=== PATIENT | male | born 1955 | race Caucasian/White ===

== ENCOUNTER 2018-02-17 17:28 | Emergency (ER) | payer MEDICAID ==
[2018-02-17 17:35] VITALS: BP 128/82; PULSE 78; RESP 18; TEMP 97.8; O2SAT 100
[2018-02-17] MEDS ORDERED: Naproxen 550 mg Tab PO STA (17:45)
[2018-02-17] MEDS ORDERED: Naproxen 550 mg Tab PO ONE (17:57)
--- NOTE | 2018-02-17 18:02 | C.PDOC ---
History Of Present Illness Patient presents to ED c/o approx 2-3 weeks of nontraumatic left knee pain. He denies falls/injuries, fever, rash, calf pain. He has been taking Naprosyn, Tylenol without relief. Patient has not seen PMD for symptoms, states he "prefers to come to hospital". Time Seen by Provider: 02/17/18 17:36 Chief Complaint (Nursing): Lower Extremity Problem/Injury History Per: Patient History/Exam Limitations: no limitations Onset/Duration Of Symptoms: Persistent (2-3 weeks ) Current Symptoms Are (Timing): Still Present Severity: Mild Past Medical History Reviewed: Historical Data, Nursing Documentation, Vital Signs Vital Signs: Last Vital Signs Temp 97.8 F 02/17/18 17:33 Pulse 78 02/17/18 17:33 Resp 18 02/17/18 17:33 BP 128/82 02/17/18 17:33 Pulse Ox 100 02/17/18 18:26 - Medical History PMH: No Chronic Diseases Surgical History: Appendectomy Family History: States: No Known Family Hx - Social History Hx Alcohol Use: No Hx Substance Use: No - Immunization History Hx Tetanus Toxoid Vaccination: No Hx Influenza Vaccination: No Hx Pneumococcal Vaccination: No Review Of Systems Except As Marked, All Systems Reviewed And Found Negative. Constitutional: Negative for: Fever, Chills Cardiovascular: Negative for: Chest Pain, Palpitations Respiratory: Negative for: Shortness of Breath Gastrointestinal: Negative for: Nausea, Vomiting, Abdominal Pain, Diarrhea Genitourinary: Negative for: Dysuria, Hematuria Musculoskeletal: Positive for: Other (RIGHT KNEE PAIN ) Skin: Negative for: Rash Neurological: Negative for: Weakness, Numbness Physical Exam - Physical Exam Appears: Well, Non-toxic, No Acute Distress Skin: Normal Color, Warm, Dry, No Rash Oral Mucosa: Moist Cardiovascular: Rhythm Regular Respiratory: Normal Breath Sounds, No Rales, No Rhonchi, No Wheezing Gastrointestinal/Abdominal: Normal Exam, Bowel Sounds, Soft, No Tenderness Extremity: Tenderness (right knee tenderness to palpation at lateral aspect, no swelling or erythema), No Calf Tenderness, Capillary Refill (< 2 sec all digits ), No Deformity, No Swelling Pulses: Left Dorsalis Pedis: Normal, Right Dorsalis Pedis: Normal Neurological/Psych: Oriented x3, Normal Motor, Normal Sensation Gait: Steady ED Course And Treatment O2 Sat by Pulse Oximetry: 100 (RA) Pulse Ox Interpretation: Normal Progress Note: Patient given PO Naprosyn. Xrays of right knee ordered and reviewed. Disposition Counseled Patient/Family Regarding: Diagnosis, Need For Followup, Rx Given - Disposition Referrals: Ej Lassiter III, MD [Staff Provider] - [facility] Disposition: HOME/ ROUTINE Disposition Time: 18:30 Condition: STABLE Additional Instructions: FOLLOW UP WITH ORTHOPEDICS WITHIN 1 WEEK USE MEDICATIONS NEEDED RETURN TO EMERGENCY ROOM IF SYMPTOMS WORSEN SEGUIMIENTO CON ORTOPEDIA DENTRO DE 1 SEMANA USE MEDICAMENTOS SEGN SEA NECESARIO REGRESE AL SHAKIR DE EMERGENCIA SI LOS SNTOMAS EMPEORAN Prescriptions: Naproxen [Naprosyn] 1 tab PO BID PRN #25 tab PRN Reason: Pain traMADol [Ultram] 50 mg PO BID PRN #12 tab PRN Reason: pain Instructions: Osteoarthritis (DC), Knee Pain (DC) Forms: [employer] (Citizen Of [place]) Print Language: SAUDI ARABIAN - JANEL Present On Arrival: None - Clinical Impression Clinical Impression: Arthritis of right knee
--- NOTE | 2018-02-18 10:38 | RAD ---
PROCEDURE: Left Knee Radiographs. HISTORY: Pain. COMPARISON: None. FINDINGS: BONES: No fracture. Medial femoral condylar spurring points towards the intercondylar fossa. Central tibial plateau subchondral cystic changes. JOINTS: Mild osteoarthritis JOINT EFFUSION: None. OTHER FINDINGS: Quadriceps insertional enthesophyte IMPRESSION: Mild osteoarthritis. Quadriceps insertional enthesophyte
== END 2018-02-17 18:53 | disposition home or self-care (01) ==
LOC: C.ER 17:28
DX: M17.12 Unilateral primary osteoarthritis, left knee (principal)

== ENCOUNTER 2018-08-21 10:07 | Emergency (ER) | payer MEDICAID ==
[2018-08-21 10:21] VITALS: BMI 29.7
[2018-08-21 10:22] VITALS: TEMP 98.7; O2SAT 98
--- NOTE | 2018-08-21 11:26 | C.PDOC ---
History Of Present Illness 63 year old male with a history of chronic hand pain presents to the ED for evaluation of worsening right hand pain for past few weeks. Patient describes pain as aching over the right hand, worse with movement and morning stiffness. Denies trauma, injury, fever, denies weakness, sensory or vascular deficits to Right hand. Time Seen by Provider: 08/21/18 10:37 Chief Complaint (Nursing): Upper Extremity Problem/Injury History Per: Patient History/Exam Limitations: no limitations Onset/Duration Of Symptoms: Days Current Symptoms Are (Timing): Still Present Quality: Aching Past Medical History Reviewed: Historical Data, Nursing Documentation, Vital Signs Vital Signs: Last Vital Signs Temp 98.7 F 08/21/18 10:21 Pulse 68 08/21/18 10:21 Resp 18 08/21/18 10:21 BP 164/99 H 08/21/18 10:21 Pulse Ox 98 08/21/18 10:21 Surgical History: Appendectomy Family History: States: Unknown Family Hx - Social History Hx Alcohol Use: No Hx Substance Use: No - Immunization History Hx Tetanus Toxoid Vaccination: No Hx Influenza Vaccination: No Hx Pneumococcal Vaccination: No Review Of Systems Except As Marked, All Systems Reviewed And Found Negative. Constitutional: Negative for: Fever, Chills Musculoskeletal: Positive for: Hand Pain (right ) Neurological: Negative for: Weakness, Numbness, Incoordination Physical Exam - Physical Exam Appears: Well, Non-toxic, No Acute Distress Skin: Normal Color, Warm, No Rash, No Ecchymosis Head: Normacephalic Eye(s): bilateral: PERRL Extremity: Normal ROM (mild discofmort to Right hand closing du eto pain/stiffness. No neurovascular deficits distally), Tenderness (mild diffuse Right dorsal hand tenderness. No palpable deformity, no skin changes.), Capillary Refill (less than 2sec to Right hand), No Deformity, No Swelling Extremity: Bilateral: Atraumatic Pulses: Right Radial: Normal Neurological/Psych: Oriented x3, Normal Speech, Normal Motor, Normal Sensation, Normal Reflexes ED Course And Treatment O2 Sat by Pulse Oximetry: 98 (RA) Pulse Ox Interpretation: Normal - Other Rad Right hand X-Ray: Interpreted by Me, Viewed By Me Interpretation: (-) acute fx or dislocation Progress Note: On re-eval, pt is afebrile, hemodynamicaly stable. non-toxic. Right hand: tendernes over dorsal aspect Right hand with mild discomfort to Right hand ecological risk assessor due to diffuse joints stiffness. Otherwise, no skin changes, no erythema, no edema, no neurovascular deficits. Imaging review (-) acute finding. Pt advised and ref. to f/u with PMD, Rheum in 2-3 days for re-eval. return to Ed if any worsening or new changes. Disposition Counseled Patient/Family Regarding: Studies Performed, Diagnosis, Need For Followup, Rx Given - Disposition Referrals: [facility] [Outside] Disposition: HOME/ ROUTINE Disposition Time: 11:10 Condition: STABLE Additional Instructions: Take mediation as prescribed' Follow up with PMD at Clinic and [facility] in 2-3 days for re-evaluation. return to ED if any worsening or new changes. Prescriptions: Prednisone [Deltasone] 40 mg PO DAILY #6 tablet traMADol [Ultram] 50 mg PO TID #7 tab Instructions: Osteoarthritis (DC), Hand Pain (DC) Forms: [employer] (Lao) Print Language: ROMANSH - Clinical Impression Clinical Impression: Hand arthritis - PA / EMPLOYMENT EVALUATOR/CASE MANAGER / Resident Statement MD/DO has reviewed & agrees with the documentation as recorded. - Scribe Statement The provider has reviewed the documentation as recorded by the Scribe (Hanh Morales) All medical record entries made by the Scribe were at my direction and personally dictated by me. I have reviewed the chart and agree that the record accurately reflects my personal performance of the history, physical exam, medical decision making, and the department course for this patient. I have also personally directed, reviewed, and agree with the discharge instructions and disposition.
[2018-08-21 11:45] VITALS: BP 164/85; PULSE 74; RESP 16
--- NOTE | 2018-08-21 12:14 | RAD ---
PROCEDURE: Right Hand Radiographs. HISTORY: pain COMPARISON: None. FINDINGS: BONES: No fracture. JOINTS: Mild osteoarthritic changes. Distal interphalangeal joints 2nd , 3rd and 5th distal interphalangeal joints Nonspecific subcortical small mm sized cyst. No gross erosions seen SOFT TISSUES: 1 mm juxta articular punctate ossifications noted: Dorsal 3rd distal interphalangeal joint and medial 2nd distal phalangeal joint.. Remote chip fracture fragment and/or ligamentous capsular ossifications can simulate this. OTHER FINDINGS: None. IMPRESSION: No fracture, lytic lesion or dislocation. Mild degenerative changes as detailed above.
== END 2018-08-21 11:44 | disposition home or self-care (01) ==
LOC: C.ER 10:07
DX: M13.841 Other specified arthritis, right hand (principal)